=== PATIENT | female | born 1950 | race Caucasian/White ===

== ENCOUNTER 2022-09-02 21:46 | Emergency (ER) | payer MEDICARE, SELFPAY ==
[2022-09-02 21:49] VITALS: BP 137/59; PULSE 77; RESP 18; TEMP 36; O2SAT 99; BMI 36.6
[2022-09-03] MEDS: Tetracaine HCl/PF 0.5% Oph Sol 4 ML DROPS 1 DROP EYE-LEFT (00:06)
[2022-09-03] MEDS: Fluorescein Sodium STRIP 1 STRIP EYE-LEFT (00:06)
--- NOTE | 2022-09-03 00:19 | ED_ITS ---
HPI - Eye Problem General Chief complaint: Eye Problems Stated complaint: ?Fb in L eye Time Seen by Provider: 09/02/22 23:55 Source: patient and family Mode of arrival: ambulatory Limitations: no limitations History of Present Illness HPI Narrative: 72-year-old female who presents the ER with complaints of left eye pain, swelling and foreign body sensation. Patient which she was sitting in her car with the windows open when she felt something client her eye. Patient tells me she has been the last few hours at home trying to flush her eye at home and was doing a lot of itching and rubbing of the eye. Patient has noticed increased swelling around the eye as well as drainage which is purulent from the eye. No vision changes. Patient denies any contact use. Patient's tetanus status is unknown Related Data Previous Rx's Medication Instructions Recorded ofloxacin 0.3 % eye drops 2 drp ophthalmic (eye) QID #10 mL 09/03/22 Allergies Allergy/AdvReac Type Severity Reaction Status Date / Time Iodinated Contrast Media Allergy Hives Verified 09/02/22 21:49 [IV Contrast Dye] Review of Systems Review of Systems: Yes all other systems are reviewed and are negative Constitutional: Constitutional: Reports no additional constitutional complaints, Denies body ache(s), Denies chills, Denies fever(s), Denies headache(s) and Denies weakness Eyes: Eyes: Reports no additional eye complaints, Denies change in vision, Reports eye discharge, Reports irritation, Reports itchy eyes, Reports eye pain, Denies requires corrective lenses and Reports photophobia ENT: Reports system reviewed and no additional complaints, except as documented, Denies dizziness, Denies headache(s), Denies nasal congestion, Denies nasal discharge and Denies neck pain Cardiovascular: Cardiovascular: Reports no additional cardiovascular complaints, Denies chest pain, Denies leg edema and Denies dyspnea Respiratory: Respiratory: Reports no additional respiratory complaints, Denies cough and Denies dyspnea Gastrointestinal: Gastrointestinal: Reports no additional gastrointestinal complaints, Denies abdominal pain, Denies diarrhea, Denies nausea and Denies vomiting Genitourinary: Genitourinary: Reports no additional female genitourinary complaints and Denies urinary incontinence Musculoskeletal: Musculoskeletal: Reports no additional musculoskeletal complaints, Denies back pain, Denies arthralgias, Denies joint swelling, Denies neck pain, Denies numbness and Denies tingling Integumentary/Breasts: Skin/Breast: Reports system reviewed and no additional complaints, except as docu and Denies rash Neurologic: Reports system reviewed and no additional complaints, except as documented, Denies Abnormal speech present, Denies dizziness, Denies headache(s) , Denies numbness, Denies tingling and Denies weakness Allergic/Immunologic: Allergic/Immunologic: Reports itchy eyes PMFSH Past Medical History Attestation statement: The following information was validated with the patient. Source: old records reviewed and nursing notes reviewed Social History Social History Advance Directives: No Advance Directives Information Provided: No Physical Exam Vital Signs: Vital Signs: Last Vital Signs Temp 96.8 F 09/02/22 21:49 Pulse 77 09/02/22 21:49 Resp 18 09/02/22 21:49 BP 137/59 L 09/02/22 21:49 Pulse Ox 99 09/02/22 21:49 O2 Del Method Room Air 09/02/22 21:49 BMI result Body Mass Index 36.6 Const: General: cooperative, healthy appearing, comfortable and no acute distress Orientation/consciousness: patient oriented x3 Limitations: no limitations HEENT: Head: Yes normal to inspection Ears: hearing grossly normal bilaterally and TM's normal bilaterally General nose exam: Normal external nose present Face and sinus: Yes normal facial exam Mouth: Normal oral and palatal mucosa present Throat: Yes posterior oropharynx normal Eyes: Other: Left periorbital swelling General: appearance normal, both eyes and all related structures Visual Trevizo: normal visual trevizo by confrontation Alignment and Position: alignment normal Eyelids: Yes other (Upper and lower eyelid swelling) Conjunctivae: conjunctival abnormal (Conjunctival injection) Sclerae: scleral abnormal (scleral edema) Corneas: fluorescein used (No corneal foreign body or abrasion) Pupils: Equal, round and reactive pupils present EOM: EOMs intact bilaterally Direct Ophthalmoscopy: normal light reflex and photophobia Neck: Neck: Yes normal visual inspection Chest: Chest palpation & inspection: normal inspection of the chest Resp: Effort & Inspection: normal respiratory effort Auscultation: clear to auscultation bilaterally Cardio: Rate: regular rate Rhythm: regular rhythm Peripheral pulses: Peripheral pulses 2+ throughout GI: Inspection: Yes normal to inspection Palpation (GI): Soft to palpation and nontender Auscultation: normal bowel sounds Back/Spine/Pelvis: Thoracic/Lumbar Spine: thoracic and lumbar spine normal to inspection Skin: General skin exam: no rashes or lesions noted Neuro: General: patient oriented x3, no focal motor deficits and normal sensation to monofilament Cranial nerves: Yes Equal, round and reactive pupils present Cognition (Neuro): normal cognition Speech: No Abnormal speech present Gait exam (Neuro): Normal gait present Motor exam (neuro): 5/5 motor strength present throughout Extrem: General: Yes normal to inspection Medications Administered Discontinued Medications Generic Name Dose Route Start Last Admin Trade Name Ranjitq PRN Reason Stop Dose Admin Fluorescein Sodium 1 strip 09/02/22 23:55 09/03/22 00:06 Fluorescein Sodium Strip EYE-LEFT 09/02/22 23:56 1 strip ONCE ONE Administration Tetracaine HCl 1 drop 09/02/22 23:55 09/03/22 00:06 Tetracaine Hcl/Pf 0.5% Oph Michelle 4 Ml Drops EYE-LEFT 09/02/22 23:56 1 drop ONCE ONE Administration Medical Decision Making Medical Decision Making [facility] Narrative: 72-year-old female here with left eye pain, swelling, drainage, foreign body sensation after feeling something flying to her eye On exam patient has left periorbital swelling, upper and lower eyelid swelling, conjunctival injection and scleral edema. Vision is normal No obvious corneal foreign body or abrasion. Will flushed eyes with Oniel lens and saline Differential Diagnosis Differential Diagnoses: The differential diagnosis associated with the presentat ion includes Corneal foreign body, corneal abrasion Discharge Plan Discharge Clinical Impression: Acute eye pain Patient Disposition: Home, Self-Care Instructions: Eye Pain (ED) Additional Instructions: Motrin or Tylenol for discomfort as needed Apply ice or cold compress to the eye Return for worsening symptoms Prescriptions: New ofloxacin 0.3 % drops 2 drp ophthalmic (eye) QID Qty: 10 0RF
[2022-09-03] MEDS: Diphth,Pertus(ACell),Tet Adult 0.5 ML SYRINGE IM (00:59)
== END 2022-09-03 01:02 | disposition home or self-care (01) ==
PROVIDERS: Emergency Provider Student in an Organized Health Care Education/Training Program; PCP Internal Medicine
DX: H57.12 Ocular pain, left eye (principal); H02.845 Edema of left lower eyelid; H02.844 Edema of left upper eyelid; H11.432 Conjunctival hyperemia, left eye; Z03.823 Encounter for observation for suspected inserted (injected) foreign body ruled out
CPT/HCPCS: 90471; 90715; 99283; 99284

== ENCOUNTER 2023-02-05 20:30 | Emergency (ER) | payer MEDICARE, SELFPAY ==
--- NOTE | ~2023-02-05 | MR_ITS ---
EXAMINATION: MR ANGIOGRAM NECK WITHOUT CONTRAST CLINICAL INFORMATION: Right neck pain. Evaluate for carotid artery dissection. COMPARISON: No relevant prior imaging. TECHNIQUE: A two-dimensional [id number] MR angiogram of the neck was performed. Coronal three-dimensional [id number] acquisition of the neck was performed after the intravenous administration of contrast. Additional noncontrast fat-suppressed T1 weighted images of the neck were obtained without contrast to evaluate for the presence of arterial dissection. A total of 10 mL Gadavist was utilized for this examination. 3D images were processed on an independent workstation under concurrent supervision. Arterial stenoses are measured in accordance with NASCET criteria or similar method if applicable. FINDINGS: Common carotid arteries and carotid bifurcations are patent. No stenosis of the extracranial internal carotid arteries. The cervical segments of vertebral arteries are patent and demonstrate normal antegrade flow. No evidence of acute arterial dissection within the neck. MR/MR angio neck wo/w con IMPRESSION: Normal MR angiogram of the neck.
[2023-02-05 20:35] VITALS: BP 166/81; PULSE 74; RESP 20; TEMP 36.7; O2SAT 97; BMI 37.6
--- NOTE | 2023-02-05 20:38 | ED.GENADULT ---
HPI - General Adult General Chief complaint: Neck Pain/Injury Stated complaint: Neck pain Time Seen by Provider: 02/06/23 01:15 Source: patient Mode of arrival: ambulatory Limitations: no limitations History of Present Illness HPI narrative: A 72-year-old female came in for evaluation of right-sided neck pain.. Neck pain started 3 days ago after holding her head backward for hair washing at the hair salon, pain is localized to the right side of the neck more with moving the head in the neck, described as severe 10/10 pain. No dizziness, no vertigo, no syncopal episode, no SOB. Related Data Home Medications Medication Instructions Recorded Confirmed ezetimibe 10 mg tablet 10 mg PO DAILY 02/06/23 02/06/23 omeprazole 20 mg capsule,delayed 20 mg PO BID 02/06/23 02/06/23 release simvastatin 40 mg tablet 40 mg PO DAILY 02/06/23 02/06/23 Previous Rx's Medication Instructions Recorded ofloxacin 0.3 % eye drops 2 drp ophthalmic (eye) QID #10 mL 09/03/22 Allergies Allergy/AdvReac Type Severity Reaction Status Date / Time Iodinated Contrast Media Allergy Hives Verified 09/02/22 21:49 [IV Contrast Dye] Review of Systems Review of Systems: All other systems are reviewed and are negative Constitutional: Reports as per HPI and Reports no additional constitutional complaints Eyes: Reports as per HPI and Reports no additional eye complaints Reports system reviewed and no additional complaints, except as documented Cardiovascular: Reports as per HPI and Reports no additional cardiovascular complaints Respiratory: Reports as per HPI and Reports no additional respiratory complaints Gastrointestinal: Reports as per HPI and Reports no additional gastrointestinal complaints Genitourinary: Reports no additional female genitourinary complaints Musculoskeletal: Reports no additional musculoskeletal complaints Skin/Breast: Reports system reviewed and no additional complaints, except as docu Psychiatric: Reports no additional psychiatric complaints Endocrine: Reports no additional endocrine complaints Hematologic/Lymphatic: Reports no additional hematologic/lymphatic complaints Allergic/Immunologic: Reports no additional allergic/immunologic complaints Reports system reviewed and no additional complaints, except as documented and Reports Abnormal speech present PENDING SALE TO [facility] Social History Social History Smoked in Last 30 Days: No Use of substances other than those prescribed or required for medical reasons: No Advance Directives: No Advance Directives Information Provided: Yes Physical Exam ED Vital Signs: Vital Signs - 24 hr 02/05/23 20:35 02/06/23 02:50 Temperature 98.1 F Pulse Rate 74 79 Respiratory Rate 20 18 Blood Pressure 166/81 H 150/87 H Pulse Oximetry 97 96 Oxygen Delivery Method Room Air Room Air BMI result Body Mass Index 37.6 Vital signs have been reviewed and appear to be correct. Blood pressure elevated. Heart rate normal. Respiratory rate normal. Temperature normal. Oxygen saturation normal. Appearance: Alert. Oriented X3. No acute distress. Head: Normal external exam. Normocephalic. Atraumatic. No Spicer signs noted. No raccoon eyes noted Eyes: PERRLA. EOMI. Conjunctiva and sclera normal. Eyelids normal. ENT: TM's Normal. Pharynx normal. Uvula midline. Moist mucous membranes. No trismus noted. No drooling noted. No muffled voice noted. Neck: Normal inspection. Neck supple.No palpable mass, reproducible tenderness on the right side of the neck, palpable right carotid artery. FROM. No adenopathy. Thyroid Normal. No meningeal signs. No neck mass noted. CVS: Normal heart rate and rhythm. Heart sound normal. No murmurs noted. Pulses normal throughout. Respiratory: No respiratory distress. Painless inspiration. Breath sounds normal. No wheezes/rales/rhonchi noted. Chest nontender. No accessory muscle usage noted or decreased air movement noted. Abdomen: Soft and nontender. Bowel sounds normal in all 4 quadrants. No distention noted. No organomegaly noted. No visible injury noted. Back: No CVA tenderness. Full range of motion noted. Skin: Skin warm and dry. Normal skin color. Normal skin turgor. No rashes/lesions/lacerations noted. Extremities: No lower extremity edema. Extremities exhibit normal range of motion. Extremities nontender. Neuro: Oriented X 3. Cranial nerve exam: II-XII are grossly intact No motor deficit. No sensory deficit. Reflexes normal. Course Course Course Narrative: RME performed by Usha Pimentel PA-C. Patient is a 72 year old assigned female at presenting to the emergency department with neck pain. Labs ordered. Patient placed back in the waiting room pending room availability and results. Reevaluation(s) Reevaluation #1: Start physician observation now, a 72-year-old female with 3 days of right-sided neck pain, pain is severe mostly with head and neck movements. Likely diagnosis is muscular pain after holding her head backward at the hair salon. right carotid artery dissection is another life threatening differential because patient is allergic to IV contrast dye, the other alternative is MRA that is not available now in this facility. patient is hemodynamically stable will hold the patient till a.m. to perform MRI. Oxycodone/ dilaudid for pain in the emergency department. signed out to Dr. Hutton Time: 01:34 Medications Administered Discontinued Medications Generic Name Dose Route Start Last Admin Trade Name Freq PRN Reason Stop Dose Admin Hydromorphone HCl 1 mg 02/06/23 02:03 02/06/23 02:48 Hydromorphone Hcl 1 Mg/Ml Syringe IVPUSH 02/06/23 02:04 1 mg ONCE ONE Administration Protocol Ondansetron HCl 4 mg 02/06/23 03:06 02/06/23 03:16 Ondansetron Hcl 4 Mg/2 Ml Vial IVPUSH 02/06/23 03:07 4 mg ONCE ONE Administration Oxycodone HCl 5 mg 02/06/23 01:25 02/06/23 01:34 Oxycodone Hcl Immed Release 5 Mg Tablet PO 02/06/23 01:26 5 mg ONCE ONE Administration Medical Decision Making Differential Diagnosis Differential Diagnoses: The differential diagnosis associated with the presentation includes ( Muscular neck strain, right carotid artery dissection.) Admission/Observation Consideration of admission/observation: Escalation of care including admission/observation considered Lab Data MDM Lab Attestation statement: I reviewed the patient's lab results. 02/05/23 21:28 02/05/23 21:28 Labs: Lab Results 02/05/23 Range/Units 21:28 WBC 14.8 H (4.8-10.8) X10*3/uL RBC 4.28 (4.20-5.50) X10*6/uL Hgb 13.6 (12.0-16.0) g/dl Hct 39.6 (37.0-47.0) % MCV 92.5 (80.0-98.0) fL MCH 31.8 (27.0-33.0) pg MCHC 34.3 (31.0-35.0) g/dl RDW 12.5 (11.0-16.0) % Plt Count 227 (160-400) X10*3/uL MPV 10.3 (9.4-12.3) fL Immature Gran % (Auto) 0.3 (0.0-0.4) % Neut % (Auto) 61.0 (45-73) % Lymph % (Auto) 31.7 (20-40) % [place] % (Auto) 6.2 (2-11) % Eos % (Auto) 0.5 (0-4) % Baso % (Auto) 0.3 (0-2) % Lymph # (Auto) 4.7 (1.2-4.9) X10*3/uL [place] # (Auto) 0.9 (0.1-1.2) X10*3/uL Eos # (Auto) 0.1 (0.0-0.4) X10*3/uL Baso # (Auto) 0.0 (0.0-0.2) X10*3/uL Abs Immat Gran (auto) 0.04 H (0.00-0.03) X10*3/uL Absolute Neuts (auto) 9.0 H (2.0-8.3) x10*3/uL Absolute Nucleated RBC 0.000 (0.0-0.012) X10*3/uL Nucleated RBC % (auto) 0.0 (0.0-0.2) /100WBC Sodium 138 (135-145) mmol/L Potassium 3.3 (3.3-5.1) mmol/L Chloride 100 (96-108) mmol/L Carbon Dioxide 25 (22-29) mmol/L Anion Gap 16 (12-20) BUN 18 H (9-16) mg/dL Creatinine 0.78 (0.5-1.4) mg/dL Estim Creat Clear Calc 77.4 Estimated GFR > 60 Random Glucose 156 H (60-115) mg/dL Calcium 9.9 (8.4-10.2) mg/dL Magnesium 1.8 (1.6-2.6) mg/dL Total Bilirubin 0.4 (0.0-1.0) mg/dL AST 32 H (5-31) U/L ALT 40 H (0-31) U/L Alkaline Phosphatase 86 (39-117) U/L Troponin I High Sens < 2.7 (<3.5-17.0) ng/L Total Protein 7.7 (6.5-8.0) g/dL Albumin 4.3 (3.5-5.0) g/dL Influenza Type A (PCR) NEGATIVE (Negative) Influenza Type B (PCR) NEGATIVE (Negative) RSV RNA Qual (PCR) NEGATIVE (Negative) SARS-CoV-2 RNA (RT-PCR) NEGATIVE (Negative) Discharge Plan Discharge Clinical Impression: Strain of neck muscle Patient Disposition: Still a Patient Prescriptions: No Action ofloxacin 0.3 % drops 2 drp ophthalmic (eye) QID Qty: 10 0RF simvastatin 40 mg tablet 40 mg PO DAILY omeprazole 20 mg capsule,delayed release(DR/EC) 20 mg PO BID ezetimibe 10 mg tablet 10 mg PO DAILY Referrals: Stefanie Luis MD [Primary Care Provider] -
--- NOTE | 2023-02-05 20:39 | ECG_ITS ---
Test Reason : NECK PAIN Blood Pressure : / mmHG Vent. Rate : 069 BPM Atrial Rate : 069 BPM P-R Int : 164 ms QRS Dur : 088 ms QT Int : 416 ms P-R-T Axes : 059 -28 043 degrees QTc Int : 445 ms Poor data quality Normal sinus rhythm Low voltage QRS Left axis deviation Possible RSR' or QR pattern in V1 suggests right ventricular conduction delay Abnormal ECG No previous ECGs available Referred By: Usha Pimentel Electronically Signed By:HAROON BRAVO MD
[2023-02-05 21:33] LABS: MANUAL DIFF FLAG NO
[2023-02-05 21:35] LABS: Basophils Percent Auto 0.3 % (0-2); Eosinophils Absolute Auto 0.1 X10*3/uL (0.0-0.4); Eosinophils Percent Auto 0.5 % (0-4); Hematocrit 39.6 % (37.0-47.0); Hemoglobin 13.6 g/dl (12.0-16.0); Imm Gran Abs Auto 0.04 X10*3/uL (0.00-0.03); Imm Gran Pct Auto 0.3 % (0.0-0.4); Lymphocytes Absolute Auto 4.7 X10*3/uL (1.2-4.9); Lymphocytes Percent Auto 31.7 % (20-40); Mean Corpuscular HGB Conc 34.3 g/dl (31.0-35.0); Mean Corpuscular Hemoglobin 31.8 pg (27.0-33.0); Mean Corpuscular Volume 92.5 fL (80.0-98.0); Mean Platelet Volume 10.3 fL (9.4-12.3); Monocytes Absolute Auto 0.9 X10*3/uL (0.1-1.2); Monocytes Percent Auto 6.2 % (2-11); Platelet Count 227 X10*3/uL (160-400); Red Blood Count 4.28 X10*6/uL (4.20-5.50); Red Cell Distribution Width 12.5 % (11.0-16.0); White Blood Count 14.8 X10*3/uL (4.8-10.8)
[2023-02-05 21:52] LABS: Alanine Aminotransferase 40 U/L (0-31); Albumin Level 4.3 g/dL (3.5-5.0); Alkaline Phosphatase 86 U/L (39-117); Anion Gap 16 (12-20); Aspartate Amino Transferase 32 U/L (5-31); Bilirubin Total 0.4 mg/dL (0.0-1.0); Blood Urea Nitrogen 18 mg/dL (9-16); Calcium 9.9 mg/dL (8.4-10.2); Carbon Dioxide 25 mmol/L (22-29); Chloride 100 mmol/L (96-108); Creatinine Clr Calc Pharmacy 77.4; Estimated Glomerular Filt Rate > 60; Glucose Random 156 mg/dL (60-115); Magnesium 1.8 mg/dL (1.6-2.6); Potassium 3.3 mmol/L (3.3-5.1); Sodium 138 mmol/L (135-145); Total Protein 7.7 g/dL (6.5-8.0)
[2023-02-05 22:01] LABS: Troponin-I High Sensitivity < 2.7 ng/L (<3.5-17.0)
[2023-02-05 22:18] LABS: Influenza A PCR NEGATIVE (Negative); Influenza B PCR NEGATIVE (Negative); Resp Syncy Virus RNA Qual PCR NEGATIVE (Negative); SARS COV2 PCR INHOUSE NEGATIVE (Negative)
[2023-02-06] MEDS: oxyCODONE HCl Immed Release 5 MG TABLET PO (01:34)
[2023-02-06] MEDS: HYDROmorphone HCl 1 MG/ML SYRINGE IVPUSH (02:48)
[2023-02-06 02:50] VITALS: BP 150/87; PULSE 79; RESP 18; O2SAT 96
--- NOTE | 2023-02-06 03:01 | PC.NURSE ---
pt transferred to Main ED, ambulated tolerated well
[2023-02-06] MEDS: ondansetron HCL 4 MG/2 ML VIAL IVPUSH (03:16)
[2023-02-06 05:30] VITALS: BP 117/54; PULSE 83; RESP 16; TEMP 36.7; O2SAT 98
--- NOTE | 2023-02-06 06:19 | PC.NURSE ---
pt reassessed, pt sleeping, arousable to voice reported nausea subsided and pain a tolerable /10
[2023-02-06 07:50] VITALS: BP 123/67; PULSE 87; RESP 20; O2SAT 94
[2023-02-06] MEDS: Ezetimibe 10 MG TABLET PO (08:30)
[2023-02-06] MEDS: Atorvastatin Calcium 20 MG TABLET PO (08:30)
[2023-02-06] MEDS: Omeprazole 20 MG CAPSULE.DR PO (08:30)
[2023-02-06 11:07] VITALS: RESP 18
--- NOTE | 2023-02-06 11:07 | PC.NURSE ---
Assumed care of patient at 1100, patient is resting comfortably on stretcher, significant other at bedside at this time. Patient offers no complaints at this time
[2023-02-06] MEDS: gadobutroL 10 ML VIAL IVPUSH (13:07)
--- NOTE | 2023-02-06 13:40 | PC.NURSE ---
Patient brought back from neck MRI, reports she is having increased pain in her neck/back after laying for 50+ minutes. Patient is now sitting comfortably on stretcher, eating lunch. Respirations even and unlabored, skin pwd, alert and oriented x4.
[2023-02-06 14:31] VITALS: BP 138/76; PULSE 84; RESP 16; TEMP 36.6; O2SAT 99
== END 2023-02-06 14:52 | disposition home or self-care (01) ==
PROVIDERS: Physician Assistant Medical; Emergency Provider Emergency Medicine; PCP Internal Medicine
DX: S16.1XXA Strain of muscle, fascia and tendon at neck level, initial encounter (principal); X50.9XXA Other and unspecified overexertion or strenuous movements or postures, initial encounter; Z20.822 Contact with and (suspected) exposure to COVID-19; Z20.828 Contact with and (suspected) exposure to other viral communicable diseases; Y93.E8 Activity, other personal hygiene; Y92.59 Other trade areas as the place of occurrence of the external cause; Y99.9 Unspecified external cause status
CPT/HCPCS: 0241U; 70549; 80053; 83735; 84484; 85025; 93005; 96374; 96375; 99285; A9585; J1170; J2405